=== PATIENT | female | born 1970 | race Caucasian/White ===

== ENCOUNTER 2021-11-02 12:29 | Emergency (ER) | payer BC, SELFPAY ==
[2021-11-02 12:40] VITALS: BP 138/72; PULSE 75; RESP 18; TEMP 36.7; O2SAT 100
--- NOTE | 2021-11-02 12:46 | ED.GENADULT ---
HPI - General Adult General Chief complaint: Skin/Abscess/Foreign Body Stated complaint: Insect Bites Time Seen by Provider: 11/02/21 12:52 Source: patient Mode of arrival: ambulatory Limitations: no limitations History of Present Illness HPI narrative: 51-year-old female presented for complaint of bedbugs stating she stayed in a hotel approximately 10 days ago and woke the next morning with itching and red sores to arms and legs, sparing the areas that were covered with pajamas. She has already disinfected her home. Endorses having bedbugs in the past and is familiar. Denies pain, swelling, fever, nausea, vomiting. Has not taken anything for symptoms. Related Data Allergies Allergy/AdvReac Type Severity Reaction Status Date / Time Penicillins AdvReac Unknown Nausea and Verified 11/02/21 12:52 Vomiting Review of Systems Review of Systems: CONSTITUTIONAL: Denies body aches, fever, chills, or sweats. EYES: Denies visual changes, redness, or discharge. ENT: Denies rhinorrhea, congestion, sore throat, or otalgia. CARDIOVASCULAR: Denies chest pain, palpitations, or edema. RESPIRATORY: Denies cough or dyspnea. GASTROINTESTINAL: Denies abdominal pain, nausea, vomiting, or diarrhea. GENITOURINARY: Denies dysuria or hematuria. SKIN: Endorses itching, open wounds. MUSCULOSKELETAL: Denies back pain, joint pain, or myalgia. NEUROLOGIC: Denies headache, numbness, tingling, or weakness. PSYCH: Denies depression or anxiety. PMFSH Comments At time of signature, I have reviewed and agree with nursing past medical, surgical, social and family history unless otherwise noted. Please see nursing chart for further information. There is no relevant family history pertinent to the presenting complaint Exam Narrative: GENERAL: Well-appearing, well-nourished, and in no acute distress. HEAD: Normocephalic, atraumatic. EYES: PERRLA, conjunctivae clear, and EOMI. ENT: Mucous membranes moist. Oropharynx without edema, erythema or lesions. NECK: Supple. No lymphadenopathy CHEST: Clear to auscultation. No respiratory distress. HEART: Regular rate and rhythm. SKIN: Warm, dry. Patches of erythematous circular papules approx 1cm diameter with scabbed center c/w bed bug bites to arms and legs, no apparent s/s infection or cellulitis NEURO: Alert and oriented x3. PSYCH: Normal mood and affect Course Course Emergency Course: Patient is aware of diagnosis, understands and agrees to treatment plan. Anticipatory guidance given. Patient agrees to follow-up as directed and is aware of reasons to seek care at the emergency department. Portions of this record may have been created with voice recognition software Level of Care: Express Care Visit Vital Signs Vital signs: Reviewed Medical Decision Making Differential Diagnosis Differential Diagnosis: bed bugs, cellulitis, scabies, ticks, fleas, lice Discharge Plan Discharge Clinical Impression: Infestation by bed bug Patient Disposition: Home, Self-Care Condition: Stable Instructions: Antibiotic Form, Bed Bugs (ED) Additional Instructions: Wash all linens with hot water and dry with high heat. Consider pesticide treatment with professionals. Avoid scratching to reduce the risk of infection. Apply cool compresses as needed, avoid hot showers or baths. Apply the cream as directed. Take Benadryl every 6 hours as needed for itching. Go to the ER for any worsening symptoms or concerns. Follow up with your primary care provider as needed in 1-2 weeks Prescriptions: New triamcinolone acetonide 0.1 % cream 1 applic topical BID Qty: 30 RF: 0 diphenhydramine HCl 50 mg capsule 50 mg PO TID PRN (Reason: itching) Qty: 20 RF: 0 Follow-up/Referrals: Henrry,Enriqueta Arriaga MD [Primary Care Provider] - Time of Disposition: 13:03
== END 2021-11-02 13:05 | disposition home or self-care (01) ==
PROVIDERS: Emergency Provider Nurse Practitioner Family; PCP Family Medicine
DX: S40.862A Insect bite (nonvenomous) of left upper arm, initial encounter (principal); S40.861A Insect bite (nonvenomous) of right upper arm, initial encounter; S80.862A Insect bite (nonvenomous), left lower leg, initial encounter; S80.861A Insect bite (nonvenomous), right lower leg, initial encounter; W57.XXXA Bitten or stung by nonvenomous insect and other nonvenomous arthropods, initial encounter
CPT/HCPCS: 99203; G0463

== ENCOUNTER 2024-11-29 11:18 | Outpatient (CLI) | payer OTHER, SELFPAY ==
--- OUTSIDE RECORDS SUMMARY | 2024-11-29 13:23 | XMS_ITS | Clinical Summary ---
Author Organization [facility] [employer] Address [address] [place] [address] Care Team Providers Care Butadiene Converter Operator Name Role Phone Unavailable Primary Care Provider Unavailabl e Source Comments [facility],non-owned Affiliates and Associated Physician Practices is amultiple site organization consisting of ambulatory clinics and hospital sitesin [place], [place], [place] and [place]. This disclosure is being madepursuant to the Care Everywhere program and may not contain all information available regarding this patient. Last updated 18.[facility] [employer] Allergies Active Allergy Reactions Criticality Noted Date Comments Penicillins 03/22/2010 Medications * Be aware that medications may not be up to date on this document. Alwaysverify current medications with the patient. Medication Sig Dispensed Refills Start Date End Date Status aspirin EC (ECOTRIN) 81 MG tablet Take 81 mg by mouth daily. Active hydrocodone-acetaminop hen (NORCO) 5-325 MG tablet Take 1 Tab by mouth every 4 hours as needed for Pain. 30 0 03/22/2010 Active Social History Tobacco Use Types Packs/Day Years Used Date Smoking Tobacco: Never Assessed Sex and Gender Information Value Date Recorded Sex Assigned at Not on file Gender Identity Not on file Sexual Orientation Not on file Last Filed Vital Signs Vital Sign Reading Time Taken Comments Blood Pressure 98/62 03/22/2010 11:00 AM CDT Pulse 66 03/22/2010 11:00 AM CDT Temperature 36.7 C (98.1 F) 03/22/2010 8:31 AM CDT Respiratory Rate 17 03/22/2010 11:00 AM CDT Oxygen Saturation 98% 03/22/2010 11:00 AM CDT Inhaled Oxygen Concentration - - Weight 56.7 kg (125 lb) 03/22/2010 8:31 AM CDT Height 157.5 cm (5' 2 ) 03/22/2010 8:31 AM CDT Body Mass Index 22.86 03/22/2010 8:31 AM CDT Plan of Treatment Health Maintenance Due Date Last Done Comments COLOGUARD (AGES 45-75) - COL ON CA SCREENING 1971 COLON MONITORING 1971 COLONOSCOPY - COLON CA SCREENING 1971 CT COLONOGRAPHY - COLON CA SCREENING 1971 Colorectal Cancer Screening 1971 FIT - COLON CA SCREENING 1971 FLEX SIG - COLON CA SCREENING 1971 LIPID TESTING 1971 MAMMOGRAM 1971 HIV SCREENING 1986 HEPATITIS C SCREENING 09/03/1989 DTAP/TDAP/TD VACCINES (1 - Tdap) 1990 HEPATITIS B VACCINE (1 of 3 - 19+ 3-dose series) 1990 PAP SMEAR 01/11/2002 01/11/1999, 04/03/1998 PNEUMOCOCCAL VACCINE 50+ (1 of 1 - PCV) 2021 ZOSTER VACCINE (1 of 2) 2021 COVID-19 VACCINE (1 - 2023-2 5 season) 2024 INFLUENZA VACCINE (#1) 2024 DEPRESSION SCREENING 2024 HIB VACCINE Aged Out No longer eligi ble based on patient's age to complete this topic HPV VACCINE Aged Out No longer eligi ble based on patient's age to complete this topic MENINGOCOCCAL (Group B) VACCINE SHARED DECISION-MAKING Aged Out No longer eligible based on patient's age to complete this topic MENINGOCOCCAL GROUPS A/C/Y/W VACCINE Aged Out No longer eligible b ased on patient's age to complete this topic PNEUMOCOCCAL VACCINE Aged Out No long er eligible based on patient's age to complete this topic Procedures Procedure Name Priority Date/Time Associated Diagnosis Comments CYTOLOGY SMEAR PAP THIN PREP MANUEL 01/11/1999 10:43 AM CDT from Last 3 Months or Most Recently Relevant to Health Maintenance Results * CYTOLOGY SMEAR PAP THIN PREP (01/11/1999 10:43 AM CDT) Result CASE NUMBER [id number] Comment: ORDERING PHYSICIAN YELITZA CHAVEZ SPECIMEN TYPE PAP Smear Date 01/11/1999 Procedure Cervical/Endocervical, 1 Vial for Thin Prep Received Specimen Adequacy Satisfactory for Evaluation Categorization Within Normal Limits Comment Inflammation Present. Snomed. 01/23/1999 0741 <1> [facility] Nola Zaidi (ASCP) PAP Footnote The PAP smear is only a screening procedure to aid in the detection of cervical cancer and its precursors. It is not a diagnostic procedure and should not be used as the sole means to detect cervical cancer. Both false negative and false positive results have been experienced. MISCELLANEOUS SAMPLES / Unknown 01/11/1999 10:43 AM CDT 01/17/1999 10:43 AM CDT Historical Provider LAB - PATHOLOGY/C YTOLOGY ORDERABLES from Last 3 Months or Most Recently Relevant to Health Maintenance
--- OUTSIDE RECORDS SUMMARY | 2024-11-29 13:23 | XMS_ITS | CONTINUITY OF CARE DOCUMENT ---
Author Name consuelo cordero Address Unknown Organization [facility] Address [address] [place] [address] Phone [phone] Care Team Providers Care Fruit Coordinator Name Role Phone Adiel ARAUZ, Yesenia Unavailable Yesenia Chun MD Unavailable RUBÉN ARAUZ, RUNDA Unavailable PROBLEMS Condition Status Date Provider Notes CHEST PAIN-05/17 NUC SM FX AP DEF, NL CATH 04/17 completed - Yesenia Chun MD TOBACCO ABUSE active ? Francesca Atkinson RN SOB-05/17 SPIROMETRY MILD RESTRICT active ? La Johnson MD CHEST PAIN-04/16 ECHO MILD PH active ? Shruti Johnson MD PHYSICAL EXAMINATION completed - Yesenia Chun MD DIZZINESS completed - Yesenia Chun MD FAMILY HISTORY OF HEART DISEASE active Yesenia Chun MD Elevated blood pressure reading without diagnosis of hypertension active Yesenia Chun MD ENCOUNTERS Date Type Provider Location Encounter Diag nosis - In-person encounter Office Visit Yesenia Chun MD [facility] CHEST PAIN-05/17 NUC SM FX AP DEF, NL CATH 04/17 - In-person encounter Office Visit Yesenia Chun MD [facility] - In-person encounter Office Visit Yesenia Chun MD [facility] PHYSICAL EXAMINATIONDIZZINESSFAMILY HISTORY OF HEART DISEASEElevated blood pressure reading without diagnosis of hypertension - In-person encounter Office Visit Yesenia Chun MD [facility] - In-person encounter Office Visit Yesenia Chun MD [facility] - In-person encounter Office Visit La Johnson MD [facility] CHEST PAIN-05/17 NUC SM FX AP DEF, NL CATH 04/17SOB-05/17 SPIROMETRY MILD RESTRICTCHEST PAIN-04/16 ECHO MILD PH - In-person encounter Office Visit La Johnson MD [facility] CHEST PAIN-05/17 NUC SM FX AP DEF, NL CATH 04/17TOBACCO ABUSE VITAL SIGNS Date Observation Value Provider Body Mass Index (Ratio) 37.49 kg/m2 Juancarlos Chun MD blood pressure, cuff size regular Ja blood pressure, diastolic 77 mm[Hg] Ja [facility] blood pressure, systolic 132 mm[Hg] [facility] pulse rate 67 /min Orestes respiratory rate E&M 12 /min Orestes oxygen saturation, oximetry 98 % [facility] weight E&M 205 [lb_av] Orestes height E&M 62 [in_i] Orestes Body Mass Index (Ratio) 36.58 kg/m2 Juancarlos Chun MD blood pressure, diastolic 84 mm[Hg] [facility] anson Rasmussen blood pressure, systolic 157 mm[Hg] Lavell Rasmussen oxygen saturation, oximetry 97 % Cydney Rasmussen pulse rate 83 /min Cydney Rasmussen respiratory rate E&M 18 /min Cydney Mesa gen weight E&M 200 [lb_av] Cydney Rasmussen height E&M 62 [in_i] Cydney Rasmussen Body Mass Index (Ratio) 37.23 kg/m2 Juancarlos Chun MD height E&M 62 [in_i] Cydney Grady blood pressure, diastolic 87 mm[Hg] St griggs Grady blood pressure, systolic 158 mm[Hg] Lavell moise Grady oxygen saturation, oximetry 98 % Cydney Grady pulse rate 78 /min Cydney Grady weight E&M 203.6 [lb_av] Cydney Grady respiratory rate E&M 16 /min Cydney Moshe gen blood pressure, diastolic 68 mm[Hg] Connie miguel angel [place] blood pressure, systolic 104 mm[Hg] Donny li [place] pulse rate 72 /min Emerson [place] oxygen saturation, oximetry 97 % Emerson [place] respiratory rate E&M 16 /min Emerson [place] weight E&M 131 [lb_av] Emerson [place] oxygen saturation, oximetry 97 % Luyc Blunt blood pressure, diastolic 63 mm[Hg] He ather Blunt blood pressure, systolic 109 mm[Hg] Hea ther Blunt pulse rate 64 /min Lucy Blunt respiratory rate E&M 18 /min Lucy Blunt weight E&M 125 [lb_av] Lucy Blunt blood pressure, diastolic, left arm 71 mm [Hg] Janeth Inavale blood pressure, systolic, left arm 105 mm [Hg] Janeth [place] blood pressure, diastolic, right arm 67 m m[Hg] Janeth [place] blood pressure, systolic, right arm 106 m m[Hg] Janeth [place] blood pressure, diastolic 67 mm[Hg] Fe rupinder Wagner blood pressure, systolic 106 mm[Hg] Fel icia Wagner pulse rate 64 /min Janeth Wagner oxygen saturation, oximetry 98 % Janeth [place] respiratory rate E&M 16 /min Janethalmita Edward weight E&M 157 [lb_av] Janethalmita Edward blood pressure, diastolic 67 mm[Hg] Jarod Khan RN blood pressure, systolic 105 mm[Hg] Eric Khan RN pulse rate 63 /min Eric Khan RN oxygen saturation, oximetry 99 % Eric Khan RN respiratory rate E&M 16 /min Eric ley RN weight E&M 155 [lb_av] Eric Khan RN RESULTS Date Observation Value Provider Reference Range Interpretation Location prothrombin time (patient) 11.2 s [employer] 9.0-11.5 Normal international normalized ratio (INR) 1.1 [employer] Normal basophils as percent of blood leukocytes 0.8 % [employer] Normal eosinophils as percent of blood leukocytes 3.2 % [employer] Normal monocyte count, blood 6.4 % [employer] Normal lymphocyte count, blood 36.6 % [employer] Normal neutrophils as percent of blood leukocytes 53.0 % [employer] Normal basophils, absolute, manual 43 cells/mcL [employer] 0-200 Normal eosinophils, absolute, manual 173 cells/mcL [employer] 15-500 Normal monocytes, absolute, manual 346 cells/mcL [employer] 200-950 Normal lymphocytes, absolute 1976 CELLS/UL [employer] [id number] Normal Absolute Neutrophil count 2862 cells/mcL [employer] [id number] Normal platelet count 191 THOUSAND/UL [employer] 140-400 Normal red blood cell distribution width 13.8 % [employer] 11.0-15.0 Normal mean corpuscular hemoglobin concentration, RBC 33.5 G/DL [employer] 32.0-36.0 Normal mean corpuscular hemoglobin, RBC 31.1 pg [employer] 27.0-33.0 Normal mean corpuscular volume, RBC 92.9 fL [employer] 80.0-100.0 Normal hematocrit, blood 36.5 % [employer] 35.0-45.0 Normal hemoglobin electrophoresis, blood 12.2 [employer] 11.7-15.5 Normal erythrocyte (RBC) count 3.93 MILLION/UL [employer] 3.80-5.10 Normal leukocyte (white blood cells) count, blood 5.4 THOUSAND/UL [employer] 3.8-10.8 Normal calcium, serum 9.2 mg/dL [employer] 8.6-10.2 Normal carbon dioxide, venous blood 21 mmol/L [employer] 21-33 Normal chloride, serum 107 mmol/L [employer] 98-110 Normal potassium, serum TNP mmol/L [employer] sodium, serum 140 mmol/L [employer] 135-146 Normal urea nitrogen/creatini ne ratio, serum NOT APPLICABLE (calc) [employer] 6-22 Estimated Glomerular Filtration Rate (calc) >60 mL/min/1.73m2 [employer] > OR = 60 Normal creatinine, serum 0.83 mg/dL [employer] 0.58-1.06 Normal urea nitrogen, blood 9 mg/dL [employer] 7-25 Normal blood glucose, random 63 mg/dL [employer] 65-99 Low HISTORY OF MEDICATION USE Medication Status Instructions Dates Provider Indications Com ments losartan 50 mg tablet active TAKE 1 TABLET BY MOUTH EVERY DAY 8 Orestes losartan 50 mg tablet completed Take 1 tablet by mouth once a day 0 - 8 NITROSTAT 0.4 MG SUBLINGUAL TABLET SUBLINGUAL completed prn for chest pain 6 - 8 Lucy Peters SOCIAL HISTORY Date Observation Value Provider social history reviewed E&M revi ewed - no changes required Ronal Cain social history E&M Marital Statu s: Single L ksenia alone E thnicity: Smoking History: P cecil currently smokes every day. P cecil has been counseled to quit. Ronal Cain physical exercise, f requency, days per week no Cydneyjose maria Rasmussen passive cigarette sm brittani exposure no Cydney Grady smoking/tobacco cess ation, patient education and counseling yes Cydneyjose maria Rasmussen chewing tobacco use Never Cydney Da vis number of years as a smoker 30 a Cydney Grady smoking history, tot al pack/day 1/2 Cydney Grady cigarette use yes Cydney Grady smoking status Current every day smoker S tacy Grady social history reviewed E&M revi ewed - no changes required Ronal Cain social history E&M Marital Statu s: Single L ksenia alone E thnicity: Smoking History: P cecil currently smokes every day. Yesenia Chun MD social history reviewed E&M revi ewed - no changes required eYsenia Chun MD passive cigarette sm brittani exposure no Cydney Grady chewing tobacco use Never Cydney Da vis number of years as a smoker 30 a Cydney Grady smoking history, tot al pack/day 1/2 Cydney Grady cigarette use yes Cydney Grady smoking status Current every day smoker S sisy Grady smoking/tobacco cess ation, patient education and counseling yes Yesenia Chun MD social history reviewed E&M reviewed Yesenia Chun MD smoking/tobacco cess ation, patient education and counseling yes Yesenia Chun MD smoking/tobacco cess ation, patient education and counseling yes Eric Khan RN social history reviewed E&M reviewed Eric Khan RN physical exercise, f requency, days per week no La Johnson MD drug use none La Johnson MD smoking/tobacco cess ation, patient education and counseling yes Eric Khan RN social history E&M Marital Statu s: Single L ksenia alone E thnicity: Eric Khan RN social history reviewed E&M reviewed Eric Khan RN alcohol use, average drinks per day none [employer] smoking status Smoker [employer] MENTAL STATUS Date Observation Value Provider assessment of judgme nt and insight E&M Alert and oriented to time, place and person. Mood and affect are normal. Yesenia Chun MD assessment of judgme nt and insight E&M Alert and oriented to time, place and person. Mood and affect are normal. Eric Khan RN assessment of judgme nt and insight E&M Alert and oriented to time, place and person. Mood and affect are normal. Eric Khan RN INSURANCE PROVIDERS Payer name Policy type / Coverage type Jarreau red republican ID [facility] [id number] ADVANCE DIRECTIVES Name Date DISCUSSED - NO DECISION MADE TREATMENT PLAN Date Name Performer [id number],SRonal i [id number],SRonal i [id number],SRonal i [id number],SRonal i [id number],Yesenia Gannon MD [id number],SYesenia MD [id number],Yesenia Gannon MD [id number],Yesenia Gannon MD [id number],Yesenia Gannon MD Cardiology Ronal Cain Cardiology Ronal Cain Cardiology Ronal Cain Cardiology Ronal Cain Cardiology Yesenia Chun MD Cardiology Yesenia Chun MD Cardiology Yesenia Chun MD Cardiology Yesenia Chun MD Cardiology Yesenia Chun MD 4 week hospital follow-up Yesenia Chun MD 4 week hospital foll ow-up: B P today: 104/68 Prior BP: 109/63 (03/15/2010) N uclear Stress Findings: The patient exercised for 4 minutes and 1 second. She reached 86% of max predicted heart rate. She had normal bp and hr response. She achieved 7 mets but had poor exercise capacity. She [address] segment change and as such had an abnormal test. Normal left ventricular size and function with a calculated ejection fraction of 65%. There is a small fixed apical defect consistent with infarct. (05/18/2009) C ardiac Cath: Normal left ventricular systolic function. Normal coronaries. Continue aggressive risk factor modification. Tobacco cessation. [facility] (03/22/2010) C arotid Doppler/Duplex: Normal CNE (03/19/2010) H CT: 36.5 (03/20/2010) Platelets: 191 THOUSAND/UL (03/20/2010) R BC: 3.93 MILLION/UL (03/20/2010) BUN: 9 (03/20/2010) Creat: 0.83 (03/20/2010) Glucose: 63 (03/20/2010) N a+: 140 (03/20/2010) K+: TNP mmol/L (03/20/2010) Cl: 107 (03/20/2010) PT: 11.2 (03/20/2010) INR: 1.1 (03/20/2010) E chocardiogram: Mild LV dysfunction mid septum and anterior apical segments. M Ild tricuspid regurgitation. R ight atrial and right ventricular enlargement. M ild pulmonary hypertension. [facility] (04/21/2009) Yesenia Chun MD FU: B P today: 109/63 Prior BP: 106/67 (05/24/2009) N uclear Stress Findings: The patient exercised for 4 minutes and 1 second. She reached 86% of max predicted heart rate. She had normal bp and hr response. She achieved 7 mets but had poor exercise capacity. She [address] segment change and as such had an abnormal test. Normal left ventricular size and function with a calculated ejection fraction of 65%. There is a small fixed apical defect consistent with infarct. (05/18/2009) E chocardiogram: Mild LV dysfunction mid septum and anterior apical segments. M Ild tricuspid regurgitation. R ight atrial and right ventricular enlargement. M ild pulmonary hypertension. [facility] (04/21/2009) Yesenia Chun MD FU: T he following medications were removed from the medication list: Nitrostat 0.4 Mg Subl (Nitroglycerin) ..... Prn for chest pain BP today: 109/63 Prior BP: 106/67 (05/24/2009) Nuclear Stress Findings: The patient exercised for 4 minutes and 1 second. She reached 86% of max predicted heart rate. She had normal bp and hr response. She achieved 7 mets but had poor exercise capacity. She [address] segment change and as such had an abnormal test. Normal left ventricular size and function with a calculated ejection fraction of 65%. There is a small fixed apical defect consistent with infarct. (05/18/2009) E chocardiogram: Mild LV dysfunction mid septum and anterior apical segments. M Ild tricuspid regurgitation. R ight atrial and right ventricular enlargement. M ild pulmonary hypertension. [facility] (04/21/2009) Yesenia Chun MD FU: T he following medications were removed from the medication list: Nitrostat 0.4 Mg Subl (Nitroglycerin) ..... Prn for chest pain BP today: 109/63 Prior BP: 106/67 (05/24/2009) Nuclear Stress Findings: The patient exercised for 4 minutes and 1 second. She reached 86% of max predicted heart rate. She had normal bp and hr response. She achieved 7 mets but had poor exercise capacity. She [address] segment change and as such had an abnormal test. Normal left ventricular size and function with a calculated ejection fraction of 65%. There is a small fixed apical defect consistent with infarct. (05/18/2009) E chocardiogram: Mild LV dysfunction mid septum and anterior apical segments. M Ild tricuspid regurgitation. R ight atrial and right ventricular enlargement. M ild pulmonary hypertension. [facility] (04/21/2009) Yesenia Chun MD Date Name CT, Coronary Calcium Score Complete Echo Cardiac Cath - CNE Carotid Duplex Bilat eral Event Recorder Spirometry Stress Test - Nuclea r HISTORY OF PROCEDURES Procedure Date Procedure Name Provider Procedure Notes S tatus EKG Yesenia Chun MD completed EKG Yesenia Chun MD completed
[2024-11-29 19:49] LABS: Hemoglobin 12.7 g/dL (12.0-15.0); Mean Corpuscular Hemoglobin 28.4 pg (26-34); Mean Corpuscular Volume 91.7 fl (80-100); Platelet Count Result 201 k/mm3 (150-375); Red Blood Count 4.47 M/mm3 (4.2-5.4); Red Cell Distribution Width 13.9 % (11.5-14.5); White Blood Count 6.3 K/mm3 (4.5-10.0)
[2024-11-29 20:54] LABS: Alanine Aminotransferase 22 U/L (6-35); Albumin Level 4.2 g/dL (3.5-5.1); Alkaline Phosphatase 92 U/L (38-126); Anion Gap 9 mmol/L (4-12); Aspartate Amino Transferase 39 U/L (14-36); Bilirubin,Total 0.6 mg/dL (0.2-1.3); Blood Urea Nitrogen 14 mg/dL (7-17); Calcium 9.3 mg/dL (8.4-10.2); Carbon Dioxide 25 mmol/L (22-30); Chloride 105 mmol/L (98-107); Cholesterol 225 mg/dL (0-200); Estimated Glomerular Filt Rate > 60; Glucose 121 mg/dL (65-110); HDL Direct 57 mg/dL; Potassium 4.1 mmol/L (3.4-5.0); Sodium 139 mmol/L (137-145); Triglycerides 149 mg/dL (<150)
[2024-11-29 21:05] LABS: LDL Cholesterol Direct 100 mg/dL
[2024-11-29 21:26] LABS: Hemoglobin A1C 5.5 % (<5.7)
== END 2024-11-29 11:19 | disposition home or self-care (01) ==
LOC: ANHBWCLAB 11:20
PROVIDERS: PCP Nurse Practitioner Adult Health; Visit Provider Nurse Practitioner Adult Health
DX: Z13.9 Encounter for screening, unspecified (principal); E66.9 Obesity, unspecified
CPT/HCPCS: 36415; 80053; 80061; 83036; 84443; 85027

== ENCOUNTER 2024-12-02 09:32 | Outpatient (CLI) | payer OTHER, SELFPAY ==
--- NOTE | ~2024-12-02 | MM_ITS ---
EXAMINATION: MM screening kiki BI w elle HISTORY: Screening TECHNIQUE: Craniocaudal and mediolateral oblique 3-D tomosynthesis images were obtained and synthetic 2-D images were generated. CAD analysis was submitted and interpreted. COMPARISON: No prior mammogram is available for comparison at this institution. BREAST PARENCHYMAL COMPOSITION: There are scattered areas of fibroglandular density. FINDINGS: Punctate calcifications are detected bilaterally, morphologically benign in appearance. Unremarkable parenchymal pattern without suspicious microcalcifications, architectural distortion, di screte masses or significant asymmetry. IMPRESSION: Unremarkable examination, as detailed above. However, without prior imaging, these results are limited BI-RADS Category 0: Incomplete: Needs comparison with prior mammograms. Reviewed, dictated and finalized at location A.
--- OUTSIDE RECORDS SUMMARY | 2024-12-02 10:15 | XMS_ITS | CONTINUITY OF CARE DOCUMENT ---
Author Name consuelo cordero Address Unknown Organization [facility] Address [address] [place] [address] Phone [phone] Care Team Providers Care Infusion Therapy Nurse Name Role Phone Adiel ARAUZ, Yesenia Unavailable [phone] Yesenia Chun MD Unavailable [phone] RUBÉN ARAUZ, RUNDA Unavailable PROBLEMS Condition Status Date Provider Notes Elevated blood pressure reading without diagnosis of hypertension active Yesenia Chun MD FAMILY HISTORY OF HEART DISEASE active Yesenia Chun MD DIZZINESS completed - Yesenia Chun MD PHYSICAL EXAMINATION completed - Yesenia Chun MD CHEST PAIN-04/16 ECHO MILD PH active ? Shruti Johnson MD SOB-05/17 SPIROMETRY MILD RESTRICT active ? La Johnson MD TOBACCO ABUSE active ? Francesca Atkinson RN CHEST PAIN-05/17 NUC SM FX AP DEF, NL CATH 04/17 completed - Yesenia Chun MD ENCOUNTERS Date Type Provider Location Encounter Diag nosis - In-person encounter Office Visit Yesenia Chun MD [facility] CHEST PAIN-05/17 NUC SM FX AP DEF, NL CATH 04/17 - In-person encounter Office Visit Yesenia Chun MD [facility] - In-person encounter Office Visit Yesenia Chun MD [facility] PHYSICAL EXAMINATIONDIZZINESSFAMILY HISTORY OF HEART DISEASEElevated blood pressure reading without diagnosis of hypertension - In-person encounter Office Visit Yesenia Chun MD [facility] Office - In-person encounter Office Visit Yesenia Chun MD [facility] Office - In-person encounter Office Visit La Johnson MD [facility] CHEST PAIN-05/17 NUC SM FX AP DEF, NL CATH 04/17SOB-05/17 SPIROMETRY MILD RESTRICTCHEST PAIN-04/16 ECHO MILD PH - In-person encounter Office Visit La Johnson MD [facility] CHEST PAIN-05/17 NUC SM FX AP DEF, NL CATH 04/17TOBACCO ABUSE VITAL SIGNS Date Observation Value Provider Body Mass Index (Ratio) 37.49 kg/m2 Juancarlos Chun MD blood pressure, cuff size regular Ja blood pressure, diastolic 77 mm[Hg] Ja [facility] blood pressure, systolic 132 mm[Hg] [facility] pulse rate 67 /min Orestes respiratory rate E&M 12 /min Orestes oxygen saturation, oximetry 98 % [facility] weight E&M 205 [lb_av] Orestes height E&M [...] Emerson Manacop oxygen saturation, oximetry 97 % Lucy Blunt blood pressure, diastolic 63 mm[Hg] He ather Blunt blood pressure, systolic 109 mm[Hg] Hea ther Blunt pulse rate 64 /min Lucy Blunt respiratory rate E&M 18 /min Lucy Blunt weight E&M 125 [lb_av] Lucy Blunt blood pressure, diastolic, left arm 71 mm [Hg] Janeth Hibernia blood pressure, systolic, left arm 105 mm [Hg] Janeth Hibernia blood pressure, diastolic, right arm 67 m m[Hg] Janeth Hibernia blood pressure, systolic, right arm 106 m m[Hg] Janeth Hibernia blood pressure, diastolic 67 mm[Hg] Fe rupinder Wagner blood pressure, systolic 106 mm[Hg] Fel icia Wagner pulse rate 64 /min Janeth Wagner oxygen saturation, oximetry 98 % Janeth Hibernia respiratory rate E&M 16 /min Janethalmita Edward [...] Normal Absolute Neutrophil count 2862 cells/mcL [facility] [id number] Normal platelet count 191 THOUSAND/UL [employer] 140-400 [...] E&M revi ewed - no changes required Yesenia Chun MD passive cigarette sm brittani exposure [...] Payer name Policy type / Coverage type [place] red constitution party ID [facility] [id number] ADVANCE DIRECTIVES Name Date DISCUSSED - NO DECISION MADE TREATMENT PLAN Date Name Performer [id number],SRonal i [id number],SRonal i [id number],SRonal i [id number],SRonal i [id number],Yesenia Gannon MD [id number],SYesenia MD [id number],Yesenia Gannon MD [id number],Yesenia Gannon MD [id number],Yesenia Gannon MD Cardiology Ronal Cain Cardiology Ronal [...] Continue aggressive risk factor modification. Tobacco cessation. [facility] (03/22/2010) C arotid Doppler/Duplex: Normal CNE (03/19/2010) [...] right ventricular enlargement. M ild pulmonary hypertension. [facility] (04/21/2009) Yesenia Chun MD FU: B P [...] right ventricular enlargement. M ild pulmonary hypertension. [facility] (04/21/2009) Yesenia Chun MD FU: T he [...] right ventricular enlargement. M ild pulmonary hypertension. [facility] (04/21/2009) Yesenia Chun MD FU: T he [...] right ventricular enlargement. M ild pulmonary hypertension. [facility] (04/21/2009) Yesenia Chun MD Date Name CT, Coronary Calcium Score Complete Echo Cardiac Cath - CNE Carotid Duplex Bilat eral Event Recorder Spirometry Stress Test - Nuclea r HISTORY OF PROCEDURES Procedure Date Procedure Name Provider Procedure Notes S tatus EKG Yesenia Chun MD completed EKG Yesenia Chun MD completed
--- OUTSIDE RECORDS SUMMARY | 2024-12-02 10:15 | XMS_ITS | Clinical Summary ---
Author Organization [facility] Address [address] [address] Care Team Providers Care Tuyere Fitter Name Role Phone Unavailable Primary Care Provider Unavailabl e Source Comments [facility],non-owned Affiliates and Associated Physician Practices is amultiple site organization consisting of ambulatory clinics and hospital sitesin [place], [place], [place] and [place]. This disclosure is being madepursuant to the Care Everywhere program and may not contain all information available regarding this patient. Last updated 18.[facility] Allergies Active Allergy Reactions Criticality Noted Date [...] Comment Inflammation Present. Snomed. 01/23/1999 0741 <1> Marketing Automation Analyst Nola Zaidi (ASCP) PAP Footnote The PAP [...]
== END 2024-12-02 09:33 | disposition home or self-care (01) ==
PROVIDERS: PCP Nurse Practitioner Adult Health; Visit Provider Nurse Practitioner Adult Health
DX: Z12.31 Encounter for screening mammogram for malignant neoplasm of breast (principal); R92.8 Other abnormal and inconclusive findings on diagnostic imaging of breast
CPT/HCPCS: 77063; 77067

== ENCOUNTER 2024-12-21 11:13 | Outpatient (CLI) | payer OTHER, SELFPAY ==
--- NOTE | ~2024-12-21 | MMUS_ITS ---
EXAMINATION: US breast LT limited, MM diagnostic kiki LT w elle HISTORY: Follow-up left breast mass TECHNIQUE: Additional 3-D tomosynthesis images of the left breast were performed and synthetic 2-D im ages were generated. CAD analysis was submitted and interpreted. High resolution Limited left breast ultrasound was performed. COMPARISON: Comparison to multiple prior studies sequentially, with oldest reviewed study dated 10/25. BREAST PARENCHYMAL COMPOSITION: Not dense: There are scattered areas of fibroglandular density. FINDINGS: MAMMOGRAPHIC FINDINGS: There are no suspicious masses, calcifications or architectural distortion in the left breast to sugg est malignancy. ULTRASOUND: Limited left breast ultrasound: At 1:00, 3 cm from the nipple there is an oval hypoechoic parallel or iented 5 mm mass with low-level internal echoes, no internal vascularity or posterior features. IMPRESSION: 1. Probable benign 5 mm left breast mass at 1:00, 3 cm from the nipple. 2. Recommend 6 month follow-up Limited left breast ultrasound BI-RADS category 3, probably benign findings. Reviewed, dictated and finalized at location B. IMPRESSION: 1. Probable benign 5 mm left breast mass at 1:00, 3 cm from the nipple. 2. Recommend 6 month follow-up Limited left breast ultrasound BI-RADS category 3, probably benign findings.
--- OUTSIDE RECORDS SUMMARY | 2024-12-21 12:32 | XMS_ITS | Clinical Summary ---
Author Organization [email or web address] Address [address] [place] [address] Care Team Providers Care Meat Puller Name Role Phone Unavailable Primary Care Provider Unavailabl e Source Comments [email or web address],non-owned Affiliates and Associated Physician Practices is amultiple site organization consisting of ambulatory clinics and hospital sitesin [place], [place], [place] and [place]. This disclosure is being madepursuant to the Care Everywhere program and may not contain all information available regarding this patient. Last updated 18.[email or web address] Allergies Active Allergy Reactions Criticality Noted Date Comments Penicillins 03/22/2010 Medications * Be aware that medications may not be up to date on this document. Alwaysverify current medications with the patient. aspirin EC (ECOTRIN) 81 MG tablet Take 81 mg by mouth daily. Active hydrocodone-acet aminophen (NORCO) 5-325 MG tablet Take 1 Tab by mouth every 4 hours as needed for Pain. 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 Snomed. 01/23/1999 0741 <1> Drill Sharpener Nola Zaidi (ASCP) PAP Footnote The PAP [...] 10:43 AM CDT Historical Provider LAB - PATHOLOGY/CYTOLOGY ORDERABLES Final Result from Last 3 Months or Most Recently Relevant to Health Maintenance
--- OUTSIDE RECORDS SUMMARY | 2024-12-21 12:32 | XMS_ITS | CONTINUITY OF CARE DOCUMENT ---
Author Name consuelo cordero Address Unknown Organization [facility] Address [address] [place] [address] Phone [phone] Care Team Providers Care Game Operator Name Role Phone Adiel ARAUZ, Yesenia Unavailable [phone] Yesenia Chun MD Unavailable [phone] RUBÉN ARAUZ, RUNDA Unavailable PROBLEMS Condition [...] In-person encounter Office Visit Yesenia Chun MD [place] [facility] CHEST PAIN-05/17 NUC SM FX AP DEF, NL CATH 04/17 - In-person encounter Office Visit Yesenia Chun MD [place] [facility] - In-person encounter Office Visit Yesenia Chun MD [facility] PHYSICAL EXAMINATIONDIZZINESSFAMILY HISTORY OF HEART DISEASEElevated blood pressure reading without diagnosis of hypertension - In-person encounter Office Visit Yesenia Chun MD [facility] Office - In-person encounter Office Visit Yesenia Chun MD [facility] Office - In-person encounter Office Visit La Johnson MD [facility] CHEST PAIN-05/17 NUC SM FX AP DEF, NL CATH 04/17SOB-05/17 SPIROMETRY MILD RESTRICTCHEST PAIN-04/16 ECHO MILD PH - In-person encounter Office Visit La Johnson MD [facility] CHEST PAIN-05/17 NUC SM FX AP DEF, NL CATH 04/17TOBACCO ABUSE VITAL SIGNS Date Observation Value Provider Body Mass Index (Ratio) 37.49 kg/m2 Juancarlos Chun MD blood pressure, cuff size regular Ja blood pressure, diastolic 77 mm[Hg] Ja [facility] blood pressure, systolic 132 mm[Hg] [facility] pulse rate 67 /min Orestes respiratory rate E&M 12 /min Orestes oxygen saturation, oximetry 98 % [facility] weight E&M 205 [lb_av] Orestes height [...] diastolic, left arm 71 mm [Hg] Janeth Placedo blood pressure, systolic, left arm 105 mm [Hg] Janeth Placedo blood pressure, diastolic, right arm 67 m m[Hg] Janeth Placedo blood pressure, systolic, right arm 106 m m[Hg] Janeth Placedo blood pressure, diastolic 67 mm[Hg] Fe rupinder Wagner blood pressure, systolic 106 mm[Hg] Fel icia Wagner pulse rate 64 /min Janeth Wagner oxygen saturation, oximetry 98 % Janeth Placedo respiratory rate E&M 16 /min Janethalmita Edward [...] Normal Absolute Neutrophil count 2862 cells/mcL [employer] [id number] Normal platelet count 191 THOUSAND/UL [employer] 140-400 [...] Payer name Policy type / Coverage type [place] red libertarian ID [facility] [id number] ADVANCE DIRECTIVES Name Date DISCUSSED - NO DECISION MADE TREATMENT PLAN Date Name Performer [id number],SRonal i [id number],SRonal i [id number],SRonal i [id number],SRonal i [id number],Yesenia Gannon MD [id number],SYesenia MD [id number],Yesenia Gannon MD [id number],Yesenia Gannon MD [id number],Yesenia Gannon MD Cardiology Ronal Cain Cardiology Ronal [...] aggressive risk factor modification. Tobacco cessation. [facility] (03/22/2010) C arotid Doppler/Duplex: Normal CNE (03/19/2010) [...] right ventricular enlargement. M ild pulmonary hypertension. [facility] (04/21/2009) Yesenia Chun MD FU: B P [...] right ventricular enlargement. M ild pulmonary hypertension. [facility] (04/21/2009) Yesenia Chun MD FU: T he [...] right ventricular enlargement. M ild pulmonary hypertension. [facility] (04/21/2009) Yesenia Chun MD FU: T he [...] right ventricular enlargement. M ild pulmonary hypertension. [facility] (04/21/2009) Yesenia Chun MD Date Name CT, Coronary Calcium Score Complete Echo Cardiac Cath - CNE Carotid Duplex Bilat eral Event Recorder Spirometry Stress Test - Nuclea r HISTORY OF PROCEDURES Procedure Date Procedure Name Provider Procedure Notes S tatus EKG Yesenia Chun MD completed EKG Yesenia Chun MD completed
== END 2024-12-21 11:14 | disposition home or self-care (01) ==
PROVIDERS: PCP Nurse Practitioner Adult Health; Visit Provider Nurse Practitioner Adult Health
DX: R92.8 Other abnormal and inconclusive findings on diagnostic imaging of breast (principal)
CPT/HCPCS: 76642; 77061; 77065; G0279

== ENCOUNTER 2025-03-22 00:39 | Day surgery (SDC) | payer OTHER, SELFPAY ==
[2025-03-04 13:21] VITALS: BMI 39.4
--- OUTSIDE RECORDS SUMMARY | 2025-03-22 00:42 | XMS_ITS | Clinical Summary ---
Author Organization [facility] Address [address] [place] [address] Care Team Providers Care Molder Fitting Name Role Phone Unavailable Primary Care Provider Unavailabl e Source Comments [facility],non-owned Affiliates and Associated Physician Practices is amultiple site organization consisting of ambulatory clinics and hospital sitesin [place], [place], [place] and [place]. This disclosure is being madepursuant to the Care Everywhere program and may not contain all information available regarding this patient. 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 Gender Identity Not on file Sexual Orientation [...] 8:31 AM CDT Height 157.5 cm (5' 2) 03/22/2010 8:31 AM CDT Body Mass Index [...] of 3 - 19+ 3-dose series) 1990 PNEUMOCOCCAL VACCINE 50+ (1 of 1 - PCV) 2021 ZOSTER VACCINE (1 of 2) 2021 COVID-19 VACCINE ( - 2023-2 5 season) 2024 DEPRESSION SCREENING 2024 INFLUENZA VACCINE (#1) 2025 HIB VACCINE Aged Out No longer eligi ble based on patient's age to complete this topic HPV VACCINE Aged Out No longer eligi ble based on patient's age to complete this topic MENINGOCOCCAL (Group B) VACC INE SHARED DECISION-MAKING Aged Out No longer eligibl e based on patient's age to complete this topic MENINGOCOCCAL GROUPS A/C/Y/W VACCINE Aged Out No longer eligible b ased on patient's age to complete this topic
[2025-03-22 08:16] VITALS: BP 152/68; PULSE 67; RESP 18; TEMP 36.3; O2SAT 100; BMI 39.9
--- NOTE | 2025-03-22 08:23 | SUR.PREOP ---
patient refused to have urine test, pt stated to not have a menstrual cycle in over a year and has had a tubal ligation. was notified and no order is needed due to patient history and findings.
--- NOTE | 2025-03-22 08:38 | P.PNAN_ITS ---
Anes - Initial Pre Proc Eval Procedure: Operation Date: 03/22/25 09:30 Proposed Procedures p Screening Colonoscopy - Efraín Michel MD Date/Time: 03/22/25 08:38 Surgeon: Efraín Michel MD Pre Op Diagnosis: Encounter for screening for malignant neoplasm of Patient Data Age: 54 Gender: F Height: 1.57 m Weight: 98.9 kg Last Vital Signs Temp 97.4 F L 03/22/25 08:16 Pulse 67 03/22/25 08:16 Resp 18 03/22/25 08:16 BP 152/68 H 03/22/25 08:16 Pulse Ox 100 03/22/25 08:16 O2 Del Method Room Air 03/22/25 08:16 Allergies Allergy/AdvReac Type Severity Reaction Status Date / Time Penicillins AdvReac Unknown Nausea and Verified 03/22/25 08:20 Vomiting Home Medications ?Medication ?Instructions ?Recorded ?Confirmed ?Type omeprazole 20 mg capsule,delayed 20 mg PO DAILY #90 caps 01/13/25 03/22/25 Rx release losartan 50 mg tablet 50 mg PO DAILY #90 tabs 01/25/25 03/22/25 Rx tirzepatide (weight loss) 10 10 mg (0.5 mL) subcut WEEKLY #2 mL 03/07/25 03/22/25 Rx mg/0.5 mL subcutaneous pen injector (Zepbound) Patient hx anesthesia problems: post op nausea/vomiting (Discussed PONV prevention. ) Family hx anesthesia problems: none Results Review: All pre-operative results and documents have been reviewed as part of the pre- operative evaluation. [facility] Surgical History Surgical History History of tubal ligation Family History Family History Mother Heart disease Social History Social History Smoking status: Former smoker Alcohol intake: never Substance use: never Substance use type: does not use Do You Feel Safe in your Home?: Yes Lack of Transportation: No Lack of Food: Never True Current Housing: I Have Housing Concerned About Future Housing: No Difficulty Paying Gas/Electric Bills: No Difficulty Paying for Meds: No Currently Unemployed: No Education: High School Diploma/GED Difficulty w/ Childcare or Family Care: No Anes - Eval Final PreProcedure Day of Procedure 03/22/25 08:38 Patient weight: obese Lungs: normal air movement Airway: Mallampati scale class III and special considerations (Small mouth. ) poor dentition Neurological: alert and oriented Last oral intake: >/= 8 hours ASA classification: II Emergent: no Anesthetic plan: proceed Anesthesia type and monitoring: general GIVS and standard monitoring Results Review: All pre-operative results and documents have been reviewed as part of the pre- operative evaluation. HTN, ex smoker 25 pack years, quit 2022. Informed Consent: The patient's anesthetic plan and its attendant risks and benefits were discussed with the patient/family/POA. Questions were solicited and answers provided to the satisfaction of the patient/family/POA.
[2025-03-22] MEDS: LACTATED RINGERS 1,000 ML 150 ML IV CONT (08:39)
--- NOTE | 2025-03-22 09:00 | PM.HPGS ---
History of Present Illness History of Present Illness Consent: Risks, benefits, and alternatives have been discussed and questions answered. Patient agrees to proceed with procedure. Chief complaint: Encounter for screening for malignant neoplasm of Narrative: Kiera Kamara is a 54 year old female here for screening colonoscopy Review of Systems Review of Systems: All systems reviewed & are unremarkable except as noted in HPI and below PMFSH Surgical History Surgical History History of tubal ligation Family History Family History Mother Heart disease Social History Social History Smoking status: Former smoker Alcohol intake: never Substance use: never Substance use type: does not use Do You Feel Safe in your Home?: Yes Lack of Transportation: No Lack of Food: Never True Current Housing: I Have Housing Concerned About Future Housing: No Difficulty Paying Gas/Electric Bills: No Difficulty Paying for Meds: No Currently Unemployed: No Education: High School Diploma/GED Difficulty w/ Childcare or Family Care: No Meds Home Medications and Allergies Home Medications ?Medication ?Instructions ?Recorded ?Confirmed ?Type omeprazole 20 mg capsule,delayed 20 mg PO DAILY #90 caps 01/13/25 03/22/25 Rx release losartan 50 mg tablet 50 mg PO DAILY #90 tabs 01/25/25 03/22/25 Rx tirzepatide (weight loss) 10 10 mg (0.5 mL) subcut WEEKLY #2 mL 03/07/25 03/22/25 Rx mg/0.5 mL subcutaneous pen injector (Zepbound) Allergies Allergy/AdvReac Type Severity Reaction Status Date / Time Penicillins AdvReac Unknown Nausea and Verified 03/22/25 08:20 Vomiting Vital Signs Vital Signs - 24 hr 03/22/25 08:16 Temperature 97.4 F L Pulse Rate 67 Respiratory Rate 18 Blood Pressure 152/68 H Pulse Oximetry 100 Oxygen Delivery Room Air Exam Const: General: comfortable and no acute distress HENMT: Face/Nose/Sinus: Normal nares present Eyes: General: appearance normal, both eyes and all related structures Neck: Neck: no JVD Resp: Auscultation: clear to auscultation bilaterally Cardio: Rate: regular rate Rhythm: regular rhythm GI: Inspection: non-distended GI Palp: Yes Soft to palpation Skin: General skin exam: normal color Neuro: General: gait normal Speech: normal speech Extrem: General: normal to inspection Psych: Mental Status: mental status grossly normal Assessment and Plan Assessment and plan (1) Screening for colon cancer: Code(s): Z12.11 - Encounter for screening for malignant neoplasm of colon Status: Acute Assessment and Plan: colonoscopy
[2025-03-22 09:16] VITALS: BP 138/70; PULSE 94; RESP 33; O2SAT 97
[2025-03-22 09:26] VITALS: BP 124/86; PULSE 91; RESP 30; O2SAT 99
[2025-03-22 09:36] VITALS: BP 144/79; PULSE 80; RESP 21; O2SAT 100
--- NOTE | 2025-03-22 09:41 | SUR.PHASEII ---
Pt was instructed by Dr. Acosta to seek medical attention if cough is accompanied by fever or chills or go to ER
== END 2025-03-22 09:44 | disposition home or self-care (01) ==
PROVIDERS: PCP Nurse Practitioner Adult Health; Referring Provider Nurse Practitioner Adult Health; Visit Provider Internal Medicine Gastroenterology
PROC: 0DJD8ZZ Inspection of Lower Intestinal Tract, Via Natural or Artificial Opening Endoscopic (ICD-10-PCS; CPT 45378; principal; 2025-03-22 09:30)
DX: Z12.11 Encounter for screening for malignant neoplasm of colon (principal); K64.8 Other hemorrhoids; I10 Essential (primary) hypertension; E66.9 Obesity, unspecified; Z68.39 Body mass index [BMI] 39.0-39.9, adult; Z79.85 Long-term (current) use of injectable non-insulin antidiabetic drugs; Z98.51 Tubal ligation status; Z87.891 Personal history of nicotine dependence; Z82.49 Family history of ischemic heart disease and other diseases of the circulatory system
CPT/HCPCS: 45378; J2003; J2704; J7120

== ENCOUNTER 2025-06-28 10:56 | Outpatient (CLI) | payer OTHER, SELFPAY ==
--- NOTE | ~2025-06-28 | US_ITS ---
EXAMINATION: US breast LT limited INDICATION: 54-year old female; BI-RADS 3, short-term follow-up probably benign left breast mass. COMPARISON: 12/21/2024 TECHNIQUE: Targeted sonographic evaluation of the upper outer LEFT breast was completed. FINDINGS: A 0.4 cm parallel orientated hypoechoic circumscribed mass at 1:00, 3 cm FN location in the LEFT breast redemonstrated is unchanged. IMPRESSION: Probably benign Hypoechoic LEFT breast mass has demonstrated 6 months stability since initial evaluation on 12/21/2024. RECOMMENDATION: 6 month follow-up diagnostic BILATERAL mammogram and LEFT breast ultrasound. BI-RADS category 3, probably benign findings. Reviewed, dictated and finalized at location B. IMPRESSION: Probably benign Hypoechoic LEFT breast mass has demonstrated 6 months stabilit y since initial evaluation on 12/21/2024. RECOMMENDATION: 6 month follow-up diagnostic BILATERAL mammogram and LEFT breas t ultrasound. BI-RADS category 3, probably benign findings.
--- OUTSIDE RECORDS SUMMARY | 2025-06-28 13:47 | XMS_ITS | Clinical Summary ---
Author Organization [facility] Address [address] [place] [address] Care Team Providers Care Boat Deckhand Name Role Phone Unavailable Primary Care Provider Unavailabl e Source Comments [facility],non-owned Affiliates and Associated Physician Practices is amultiple site organization consisting of ambulatory clinics and hospital sitesin [place], [place], [place] and [place]. This disclosure is being madepursuant to the Care Everywhere program and may not contain all information available regarding this patient. 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
== END 2025-06-28 10:57 | disposition home or self-care (01) ==
LOC: ANHFOHIMG 10:58
PROVIDERS: PCP Nurse Practitioner Adult Health; Visit Provider Nurse Practitioner Adult Health
DX: R92.8 Other abnormal and inconclusive findings on diagnostic imaging of breast (principal); N63.21 Unspecified lump in the left breast, upper outer quadrant
CPT/HCPCS: 76642